=== PATIENT | male | born 1935 | race Caucasian/White ===

== ENCOUNTER 2019-11-24 08:23 | Outpatient (CLI) | payer MEDICARE, SELFPAY ==
--- NOTE | ~2019-11-24 | NM_ITS ---
EXAMINATION: NM vega stress w perfusion DATE: 11/24/2019 11:15 INDICATION: Dyspnea TECHNIQUE: Rest images were obtained following intravenous administration of 10.1 mCi Tc99m tetrofosm in (Myoview). The patient was infused intravenously with Lexiscan (Regadenoson). Then, 31.9 mCi Tc99m tetrofosmin (Myoview) was administered intravenously, and stress images were obtained. Data was flores nstructed into short axis and horizontal and vertical long axis SPECT images. Gated SPECT images were also obtained. COMPARISON: None. FINDINGS: There is a large moderate to severe perfusion defect involving the apical, apical septal, a pical inferior, mid for septal and inferior and basilar inferior segments. This is versus consistent with ischemia in the mid inferoseptal and partially reversible in the apical and apical inferior segm ents. Remainder is nonreversible consistent with infarct. There is normal left ventricular chamber si ze, wall motion and borderline ejection fraction. Left ventricular ejection fraction measures 48%. IMPRESSION: 1. 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 2. Left ventricular ejection fraction measuring 48%. Reviewed, dictated and finalized at location A. DENT ASSOCIATE IMPRESSION: 1. Large moderate to severe infarct with small regions of peripheral ischemia i nvolving primarily the right coronary artery vascular distribution as detailed above. 2. Left ventricular ejection fraction measuring 48%.
--- NOTE | 2019-11-24 09:08 | EST_ITS ---
Patient Info Name: Quentin Flor Age: 83 years : 1935 Gender: Male Ht: 72 in Wt: 190 lbs BSA: 2.10 m2 Exam Date: 11/24/2019 9:43 AM Exam Location: [facility] Stress Patient Status: Outpatient Admit Date: 11/24/2019 Staff Ordering Physician: Song Lopez PA-C Attending Provider: MARK SOSA DO Exercise Technologist: Alysa Valero RDCS Exercise Physician: Mark Sosa DO Exam Type: CA stress vega w NM Study Info Indications R06.09 - Other forms of dyspnea A regadenoson stress test was performed. Summary 1. 1. Negative Lexiscan stress test for ischemic ST changes by ECG criteria. 2. 2. Baseline hypertension. 3. 3. Nuclear scan to follow and will be reported separately. Please correlate with it. 4. 4. Patient informed of the above results. Protocol: Lexiscan Stress ECG Details Stage: REST Duration (min): 3 min : 4 sec HR (bpm): 47 SBP (mmHg): 192 DBP (mmHg): 100 Stage: REST Duration (min): 8 min : 53 sec HR (bpm): 54 SBP (mmHg): 192 DBP (mmHg): 100 Stage: STAGE 1 Duration (min): 0 min : 59 sec HR (bpm): 61 SBP (mmHg): 198 DBP (mmHg): 104 Stage: RECOVERY Duration (min): 1 min : 0 sec HR (bpm): 67 SBP (mmHg): 198 DBP (mmHg): 104 Stage: RECOVERY Duration (min): 2 min : 0 sec HR (bpm): 64 SBP (mmHg): 169 DBP (mmHg): 96 Stage: RECOVERY Duration (min): 3 min : 0 sec HR (bpm): 61 SBP (mmHg): 163 DBP (mmHg): 93 Stage: RECOVERY Duration (min): 3 min : 11 sec HR (bpm): 61 SBP (mmHg): 163 DBP (mmHg): 93 Rest HR: 54 bpm Peak HR: 68 bpm Rest Sys BP: 192 mmHg Peak Sys BP: 198 mmHg Max Pred HR: 138 bpm % Max Pred HR: 49 % Target HR: 117 bpm Max RPP: 13,464 bpm*mmHg Termination Reason: Completed protocol Cardiac Symptoms: Shortness of breath Total Time: 1 min : 0 sec Rest Montilla BP: 100 mmHg Peak Montilla BP: 104 mmHg Total Dose: 0.4 mg Resting ECG Sinus bradycardia, IVCD, borderline ST-T wave abnormality in lateral leads. Stress ECG No ST changes. Arrhythmias None. Report Signatures
== END 2019-11-24 08:24 | disposition home or self-care (01) ==
PROVIDERS: PCP Internal Medicine; Visit Provider Physician Assistant
DX: R06.09 Other forms of dyspnea (principal); I10 Essential (primary) hypertension
CPT/HCPCS: 78452; 93017; A9502; J2785

== ENCOUNTER 2021-05-27 09:01 | Outpatient (CLI) | payer MEDICARE, SELFPAY ==
--- NOTE | ~2021-05-27 | US_ITS ---
EXAMINATION: US carotid duplex BI DATE: 05/27/2021 09:43 INDICATION: Occlusion and stenosis of unspecified carotid artery. TECHNIQUE: Grayscale, color Doppler, and pulsed Doppler images of the cervical carotid arteries were obtained. The degree of vessel stenosis is placed in one of the following categories: normal, <50%, 5 0-69%, >=70% but less than near-occlusion, near-occlusion, or total occlusion. Note that percent sten osis relative to normal distal artery lumen diameter is indirectly measured from velocity measurement s as described by Terrell, et al. Radiology 2003; 229:340-346. COMPARISON: Ultrasound 10/24/2019 FINDINGS: RIGHT: The right common carotid artery (CCA) peak systolic velocity (PSV) is 108 cm/s. The right internal ca rotid artery (ICA) PSV is 116 cm/s. The right ICA end-diastolic velocity (EDV) is 35 cm/s. The right ICA/CCA PSV ratio is 1.1. Grayscale and color Doppler images yield an estimate of <50% diameter reduc tion from plaque in the ICA. There is antegrade flow in the right vertebral artery. LEFT: The left CCA PSV is 85 cm/s. There is total occlusion of left ICA. There is antegrade flow in the lef t vertebral artery. IMPRESSION: 1. <50% stenosis in the right internal carotid artery. 2. 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 Reviewed, dictated and finalized at location A.
== END 2021-05-27 09:02 | disposition home or self-care (01) ==
LOC: ANHIMG 09:02
PROVIDERS: PCP Internal Medicine; Visit Provider Internal Medicine
DX: I65.23 Occlusion and stenosis of bilateral carotid arteries (principal)
CPT/HCPCS: 93880